=== PATIENT | male | born 1965 | race Caucasian/White ===

== ENCOUNTER → 2024-09-23 09:58 | Outpatient (REF) | payer BC, SELFPAY | LOC: HWRAD 09:58 | PROVIDERS: ATTENDING PHYSICIAN Internal Medicine | DX: M25.552 Pain in left hip (principal) | CPT/HCPCS: 73523 ==

== ENCOUNTER → 2024-09-30 10:38 | Outpatient (REF) | payer BC, SELFPAY ==
[2024-09-30 11:35] LABS: % Basophils 0.4 % (0-2); % Eosinophils 0.9 % (0-6); % Immature Granulocytes 0.3 % (0-0.5); % Lymphocytes 20.7 % (20.5-51.1); % Monocytes 9.9 % (1.7-9.3); % Neutrophils 67.8 % (42.2-75.2); Absolute Eosinophils 0.1 10^3/uL (0-0.7); Absolute Lymphocytes 1.9 10^3/uL (1.2-3.4); Absolute Monocytes 0.9 10^3/uL (0.1-0.6); Absolute Neutrophils 6.3 10^3/uL (1.4-6.5); Hematocrit 46.7 % (39.0-52.0); Hemoglobin 15.9 g/dL (13.0-18.0); Mean Corpuscular Hgb 32.7 pg (27.0-31.0); Mean Corpuscular Volume 96.1 fL (80.0-94.0); Mean Platelet Volume 9.6 fL (7.4-10.4); Nucleated Red Blood Cells % 0 % (-); Platelet Count 305 10^3/uL (130-400); Red Blood Cell Count 4.86 10^6/uL (4.70-6.10); White Blood Cell Count 9.4 10^3/uL (4.8-10.8)
[2024-09-30 14:20] LABS: Blood Urea Nitrogen 16 mg/dl (9-20); Calcium 9.9 mg/dl (8.4-10.2); Carbon Dioxide 31 mmol/L (22-30); Chloride 97 mmol/L (98-107); Glucose 83 mg/dl (70-99); Potassium 4.6 mmol/L (3.5-5.1); Sodium 138 mmol/L (135-145); eGFR > 60.00
== END ==
LOC: REG 10:38
PROVIDERS: ATTENDING PHYSICIAN Orthopaedic Surgery; FAMILY PHYSICIAN Internal Medicine
DX: Z01.818 Encounter for other preprocedural examination (principal)
CPT/HCPCS: 36415; 80048; 85025; 93005

== ENCOUNTER 2024-11-16 09:51 | Outpatient (RCR) | payer BC, SELFPAY | END 2024-11-16 23:59 | disposition home or self-care (01) | LOC: RPT 09:51 | PROVIDERS: ATTENDING PHYSICIAN Orthopaedic Surgery; FAMILY PHYSICIAN Internal Medicine | DX: Z47.1 Aftercare following joint replacement surgery (principal); M16.12 Unilateral primary osteoarthritis, left hip; M62.81 Muscle weakness (generalized); R26.89 Other abnormalities of gait and mobility; G62.0 Drug-induced polyneuropathy; Z96.642 Presence of left artificial hip joint; T45.1X5D Adverse effect of antineoplastic and immunosuppressive drugs, subsequent encounter; Z85.841 Personal history of malignant neoplasm of brain; Z85.46 Personal history of malignant neoplasm of prostate | CPT/HCPCS: 97110; 97162; 97535 ==

== ENCOUNTER 2024-12-04 06:15 | Outpatient (RCR) | payer BC, SELFPAY | END 2024-12-04 23:59 | disposition home or self-care (01) | LOC: RPT 06:15 | PROVIDERS: ATTENDING PHYSICIAN Orthopaedic Surgery; FAMILY PHYSICIAN Internal Medicine | DX: Z47.1 Aftercare following joint replacement surgery (principal); M16.12 Unilateral primary osteoarthritis, left hip; M62.81 Muscle weakness (generalized); R26.89 Other abnormalities of gait and mobility; G62.0 Drug-induced polyneuropathy; T45.1X5D Adverse effect of antineoplastic and immunosuppressive drugs, subsequent encounter; Z96.642 Presence of left artificial hip joint; Z85.841 Personal history of malignant neoplasm of brain; Z85.46 Personal history of malignant neoplasm of prostate | CPT/HCPCS: 97110; 97530; 97535 ==

== ENCOUNTER 2025-01-22 08:56 | Outpatient (RCR) | payer BC, SELFPAY | END 2025-01-22 23:59 | disposition home or self-care (01) | LOC: RPT 08:56 | PROVIDERS: ATTENDING PHYSICIAN Physician Assistant Medical; FAMILY PHYSICIAN Internal Medicine | DX: Z47.1 Aftercare following joint replacement surgery (principal); Z96.642 Presence of left artificial hip joint; M89.8X5 Other specified disorders of bone, thigh; M97.8XXA Periprosthetic fracture around other internal prosthetic joint, initial encounter | CPT/HCPCS: 97110; 97162; 97535 ==

== ENCOUNTER 2025-02-18 08:02 | Outpatient (RCR) | payer BC, SELFPAY | END 2025-02-18 23:59 | disposition home or self-care (01) | LOC: RPT 08:02 | PROVIDERS: ATTENDING PHYSICIAN Physician Assistant Medical; FAMILY PHYSICIAN Internal Medicine | DX: Z47.1 Aftercare following joint replacement surgery (principal); Z96.642 Presence of left artificial hip joint; M89.8X5 Other specified disorders of bone, thigh; M97.8XXA Periprosthetic fracture around other internal prosthetic joint, initial encounter | CPT/HCPCS: 97110; 97140; 97530 ==

== ENCOUNTER 2025-03-23 08:50 | Outpatient (RCR) | payer BC, SELFPAY | END 2025-03-23 23:59 | disposition home or self-care (01) | LOC: RPT 08:50 | PROVIDERS: ATTENDING PHYSICIAN Physician Assistant Medical; FAMILY PHYSICIAN Internal Medicine | DX: Z47.1 Aftercare following joint replacement surgery (principal); Z96.642 Presence of left artificial hip joint; M97.8XXD Periprosthetic fracture around other internal prosthetic joint, subsequent encounter; M89.8X5 Other specified disorders of bone, thigh; M97.8XXA Periprosthetic fracture around other internal prosthetic joint, initial encounter; Z73.6 Limitation of activities due to disability; R26.89 Other abnormalities of gait and mobility | CPT/HCPCS: 97110; 97140; 97530 ==

== ENCOUNTER 2025-04-22 07:07 | Outpatient (RCR) | payer BC, SELFPAY | END 2025-04-22 23:59 | disposition home or self-care (01) | LOC: RPT 07:07 | PROVIDERS: ATTENDING PHYSICIAN Physician Assistant Medical; FAMILY PHYSICIAN Internal Medicine | DX: Z47.1 Aftercare following joint replacement surgery (principal); M89.8X5 Other specified disorders of bone, thigh; M97.8XXD Periprosthetic fracture around other internal prosthetic joint, subsequent encounter; Z73.6 Limitation of activities due to disability; W10.1XXD Fall (on)(from) sidewalk curb, subsequent encounter; Z96.642 Presence of left artificial hip joint | CPT/HCPCS: 97110; 97140; 97530 ==

== ENCOUNTER 2025-04-29 06:40 | Outpatient (RCR) | payer BC, SELFPAY | END 2025-04-29 23:59 | disposition home or self-care (01) | LOC: RPT 06:40 | PROVIDERS: ATTENDING PHYSICIAN Physician Assistant Medical; FAMILY PHYSICIAN Internal Medicine | DX: Z47.1 Aftercare following joint replacement surgery (principal); M89.8X5 Other specified disorders of bone, thigh; M97.8XXD Periprosthetic fracture around other internal prosthetic joint, subsequent encounter; Z73.6 Limitation of activities due to disability; W10.1XXD Fall (on)(from) sidewalk curb, subsequent encounter; Z96.642 Presence of left artificial hip joint | CPT/HCPCS: 97110; 97530 ==